=== PATIENT | male | born 1990 | race Two or more races ===

== ENCOUNTER 2025-07-20 17:50 | Emergency (ER) | payer MEDICAID, OTHER ==
[~2025-07-20] VITALS: Ht 172.7 cm; Wt 82.0 kg
--- NOTE | 2025-07-20 18:05 | ECG ---
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
--- NOTE | 2025-07-20 18:16 | ED.PDOC ---
History of Present Illness HPI Comments 35 y/o Burmese speaking M presents with [id number] for c/c of left chest wall and leg pain s/p blunt/crushing trauma. Patient endorses on a horse falling and landing on his left side, earlier, today. No reported prior symptoms or lost of consciousness then. Associated dyspnea and exacerbation of pain upon inspiration and expiration. Denial of any further acute injuries or symptoms at this time. Chief Complaint: Chest Wall Injury Time Seen by MD: 18:10 Reviewed Notes: Nurses Notes, Medications, Allergies Allergies: Coded Allergies: NO KNOWN ALLERGIES (Unverified , 07/20/25) Information Source: Patient Mode of Arrival: Ambulatory Severity: Moderate Timing: Hours Duration: Since onset Prehospital treatment: None Past Medical History PAST MEDICAL HISTORY: Denies Surgical History: Denies all surgeries All Other Systems: Reviewed and Negative (As per HPI) Physical Exam General Appearance: No Apparent Distress, Normal HEENT: Normal ENT Inspection, Pharynx Normal, TMs Normal Neck: Full Range of Motion, Non-Tender, Normal, Normal Inspection Respiratory: Lungs Clear, No Accessory Muscle Use, No Respiratory Distress, Normal Breath Sounds Cardiovascular: No Edema, No JVD, No Murmur, No Gallop, Normal Peripheral Pulses, Regular Rate/Rhythm Breast Exam: Deferred Gastrointestinal: No Organomegaly, Non Tender, No Pulsatile Mass, Normal Bowel Sounds, Soft Genitalia: Deferred Pelvic: Deferred Rectal: Deferred Extremities: No calf tenderness, Normal capillary refill, Normal inspection, Normal range of motion, No pedal edema, Tender (left knee ) Musculoskeletal : Location: Left Extremity Location: Chest Apperance: Normal, Tenderness 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 Was a procedure done?: No Differential Dx Considerations may include: chest wall injury, intrathoracic hemorrhaging, fractures, contusions, sprain, strain, among others X-Ray, Labs, Meds, VS Vital Signs Date Time Temp Pulse Resp B/P (MAP) Pulse Ox O2 Delivery O2 Flow Rate FiO2 07/20/25 22:00 98.2 90 14 133/91 (105) 100 98.2 07/20/25 22:00 90 14 100 Room Air* 0 21 07/20/25 18:01 106 07/20/25 17:51 98.3 113 15 153/83 98 98.3 Time of 1ST Reevaluation: 18:10 Reevaluation 1ST: Unchanged Patient Education/Counseling: Diagnosis, Treatment, Need For Follow Up Family Education/Counseling: Diagnosis, Treatment, Need For Follow Up SEPSIS Sepsis Screen Date sepsis recognized/suspect: Jul 20, 2025 Time Sepsis recognized/suspect: 1754 Recent Procedure: No On Antibiotic Therapy: No Respiratory Rate >20: No Heart Rate >90: No Temp<36 C (96.8 F) or >38.3 C: No SBP <90 or MAP <65 mmHG: No New Acute Mental Status Change: No Is the patient on CPAP, BIPAP,: No Physician Orders L Rib X Ray (07/20/25 18:10) Chest Two Views Routine (07/20/25 18:10) L Femur Xray (07/20/25 18:10) L Knee 3v Xray (07/20/25 18:10) Vital Signs Date Time Temp Pulse Resp B/P (MAP) Pulse Ox O2 Delivery O2 Flow Rate FiO2 07/20/25 22:00 98.2 90 14 133/91 (105) 100 98.2 07/20/25 22:00 90 14 100 Room Air* 0 21 07/20/25 18:01 106 07/20/25 17:51 98.3 113 15 153/83 98 98.3 Departure 1 Departure Time of Disposition: 20:00 Impression: Primary Impression: Chest wall contusion Additional Impressions: Contusion of left knee, initial encounter Contusion of left thigh, initial encounter Fall from horse Disposition: 01 HOME / SELF CARE / HOMELESS Condition: Stable Discharged With: Self Critical Care Note Critical Care Time?: No Stability Stability form required: No Heart Score Heart Score: Heart Score Response (Comments) Value History N/A 0 EKG N/A 0 Age N/A 0 Risk Factors N/A 0 Troponin N/A 0 Total 0 I personally scribed for CARLA BARNES MD ([email or web address]) on 07/20/25 at 18:16. Electronically submitted by Rachid Dupont ([email or web address]). CARLA BARNES MD Jul 20, 2025 18:16
--- NOTE | 2025-07-20 19:44 | DVH ---
XY CHEST TWO VIEWS ROUTINE CLINICAL HISTORY: fall off horse pain COMPARISON: None TECHNIQUE: Frontal and lateral view of the chest was obtained FINDINGS: Lines and Tubes: None Lungs: No focal consolidation. Pleura: No effusion. No pneumothorax. Cardiomediastinal contours: Unremarkable Bones: No acute osseous abnormality. IMPRESSION: No acute cardiopulmonary disease.
--- NOTE | 2025-07-20 20:03 | DVH ---
EXAM: XY L RIB X RAY REASON FOR EXAM: Fell from horse. Pain. TECHNIQUE: 2 views of the left ribs are submitted for review. COMPARISON: XY CHEST TWO VIEWS ROUTINE on DOS: 07/20/25 FINDINGS: No rib fracture is identified. The soft tissues appear within normal limits. IMPRESSION: No evidence of rib fracture.
--- NOTE | 2025-07-20 20:05 | DVH ---
XY L FEMUR XRAY COMPARISON: None INDICATION: fall off horse pain FINDINGS/IMPRESSION: No acute fracture or dislocation.
--- NOTE | 2025-07-20 20:06 | DVH ---
XY L KNEE 3V XRAY COMPARISON: None INDICATION: fall off horse pain FINDINGS/IMPRESSION: No acute fracture or dislocation. No significant joint effusion.
[2025-07-20] MEDS ORDERED: HYDROcodone-ACET 10/325MG TAB PO ONE (20:45)
[2025-07-20 22:00] VITALS: BP 133/91; PULSE 90; RESP 14; TEMP 98.2; O2SAT 100
== END 2025-07-20 22:36 | disposition home or self-care (01) ==
LOC: ER 17:50
DX: S20.219A Contusion of unspecified front wall of thorax, initial encounter (principal); S70.12XA Contusion of left thigh, initial encounter; S80.02XA Contusion of left knee, initial encounter; V80.010A Animal-rider injured by fall from or being thrown from horse in noncollision accident, initial encounter; Y93.52 Activity, horseback riding; Y92.89 Other specified places as the place of occurrence of the external cause; Y99.8 Other external cause status
CPT/HCPCS: 71046; 71101; 73562; 93005